=== PATIENT | male | born 1945 | race American Indian/Alaskan Native ===

== ENCOUNTER 2021-09-15 12:21 | Inpatient (IN) | payer SELFPAY ==
--- NOTE | 2021-09-15 13:02 | Emergency Department Report ---
Stated Complaint: PAIN IN CHEST AFTER EATING - HPI History of Present Illness: 76-year-old male with no significant past medical history has been eating but reports that he feels like food is getting stuck in his esophagus. And after eating he vomits his food back up. For about a month now. No other acute symptoms reported. Patient is able to drink and stay hydrated but with food just feels if they get stuck in his throat or just EXTR. - ROS Review of Systems: After eating patient reports food seems to be lodged in throat. No other acute symptoms reported denies chest pain, shortness of breath, dizziness, weakness. - Exam Vital Signs: Vital Signs 09/15/21 12:57 Temperature 98.1 F Pulse Rate 116 H Respiratory 20 Rate Blood Pressure 148/97 [Right] O2 Sat by Pulse 100 Oximetry Physical Exam: No acute distress A/O x4 Patient amatory with no assistance. Nonlabored breathing. Skin dry clean and intact. MSE screening note: Focused history and physical exam performed. Due to findings the following was ordered: MSE complete. Orders to be placed. Patient to be seen by another provider in the back. Triage complete. ED Disposition for MSE Condition: Stable
[2021-09-16] MEDS ORDERED: ONDANSETRON 4 MG/2 ML INJ IV ONE (01:35)
--- NOTE | 2021-09-16 01:43 | Emergency Department Report ---
HPI - General Chief Complaint: Nausea/Vomiting/Diarrhea Time Seen by Provider: 09/16/21 01:17 - HPI HPI: Room 22 The patient is a 76-year-old male present with chief complaint of nausea vomiting. The patient states for the past month he feels as though solid foods get stuck in his chest when he swallows. Patient also complains of diffuse abdominal pain when he is full. The patient explains that whenever he eats solid food feels like his sister and eventually vomits. Patient states he is able to consume liquids. Patient admits to watery diarrhea. Patient has not yet seen a physician about the above complaints. ED Past Medical Hx - Past Medical History Previous Medical History?: No - Surgical History Past Surgical History?: No - Family History Family history: no significant - Social History Smoking Status: Never Smoker Substance Use Type: None (Denies illicit drug use) ED Review of Systems ROS: Stated complaint: PAIN IN CHEST AFTER EATING Other details as noted in HPI Constitutional: denies: fever Eyes: denies: eye pain ENT: denies: throat pain Cardiovascular: denies: chest pain Endocrine: no symptoms reported Gastrointestinal: abdominal pain, nausea, vomiting, diarrhea Genitourinary: denies: dysuria Musculoskeletal: denies: back pain Neurological: denies: headache Physical Exam - Physical Exam Vital Signs: Vital Signs 09/15/21 09/16/21 09/16/21 12:57 01:19 01:31 Temperature 98.1 F Pulse Rate 116 H 98 H 98 H Respiratory 20 16 16 Rate Blood Pressure 143/99 Blood Pressure 148/97 [Right] O2 Sat by Pulse 100 98 100 Oximetry Physical Exam: GENERAL: The patient is well-developed well-nourished male lying on stretcher not appearing to be in acute distress. [] HEENT: Normocephalic. Atraumatic. Extraocular motions are intact. Patient has moist mucous membranes. NECK: Supple. Trachea midline CHEST/LUNGS: Clear to auscultation. There is no respiratory distress noted. HEART/CARDIOVASCULAR: Regular. There is no tachycardia. There is no gallop rub or murmur. ABDOMEN: Abdomen is soft, nontender. Patient has normal bowel sounds. There is no abdominal distention. SKIN: There is no rash. There is no edema. There is no diaphoresis. NEURO: The patient is awake, alert, and oriented. The patient is cooperative. The patient has no focal neurologic deficits. The patient has normal speech. GCS 15 MUSCULOSKELETAL:There is no evidence of acute injury. ED Course Vital Signs 09/15/21 09/16/21 09/16/21 12:57 01:19 01:31 Temperature 98.1 F Pulse Rate 116 H 98 H 98 H Respiratory 20 16 16 Rate Blood Pressure 143/99 Blood Pressure 148/97 [Right] O2 Sat by Pulse 100 98 100 Oximetry - Consultations Consultation #1: 09/16/21 03:26 GI paged 09/16/21 03:33 Case discussed with clinical laboratory scientist Dr. Rodriguez- agree with admission. Will consult ED Medical Decision Making - Lab Data Result diagrams: 09/16/21 01:58 09/16/21 01:58 Laboratory Tests 09/16/21 09/16/21 01:58 01:58 WBC 7.2 RBC 4.80 Hgb 13.0 Hct 37.7 MCV 78 L MCH 27 L MCHC 35 H RDW 15.9 H Plt Count 76 L Lymph % (Auto) 36.9 H [place] % (Auto) 9.4 H Eos % (Auto) 2.5 Baso % (Auto) 0.5 Lymph # (Auto) 2.7 [place] # (Auto) 0.7 Eos # (Auto) 0.2 Baso # (Auto) 0.0 Seg Neutrophils % 50.7 Seg Neutrophils # 3.6 Sodium 136 L Potassium 4.5 Chloride 102.9 Carbon Dioxide 20 L Anion Gap 18 BUN 13 Creatinine 0.8 Estimated GFR > 60 BUN/Creatinine Ratio 16 Glucose 127 H Calcium 8.9 Total Bilirubin 1.80 H AST 14 ALT 30 Alkaline Phosphatase 111 Total Protein 8.0 Albumin 4.0 Albumin/Globulin Ratio 1.0 Lipase 43 - Radiology Data Radiology results: report reviewed (CT abdomen pelvis), image reviewed (CT abdomen pelvis) [facility] [address] [place] [address] Cat Scan Report Signed Patient: FLACO ROGERS MR#: [id number] : 1945 Acct:[id number] Age/Sex: 76 / M ADM Date: 09/15/21 Loc: ED Attending Dr: Ordering Physician: IVORY MCNULTY MD Date of Service: 09/16/21 Procedure(s): CT abdomen pelvis wo con Accession Number(s): [id number] cc: IVORY MCNULTY MD CT ABDOMEN AND PELVIS WITHOUT CONTRAST INDICATION / CLINICAL INFORMATION: Intractable n/v, intolerance of solid food. TECHNIQUE: Axial CT images were obtained through the abdomen and pelvis without IV contrast. All CT scans at this location are performed using CT dose reduction for ALARA by means of automated exposure control. COMPARISON: None available. FINDINGS: LOWER CHEST: There is bibasilar volume loss. LIVER: No significant abnormality GALLBLADDER/BILIARY TREE: No significant abnormality PANCREAS: No significant abnormality SPLEEN: Mildly enlarged, measuring 13.8 cm. ADRENALS: No significant abnormality RIGHT KIDNEY / URETER: No acute findings. Renal cysts. LEFT KIDNEY / URETER: No acute findings. Tiny left renal cyst. URINARY BLADDER: No significant abnormality REPRODUCTIVE ORGANS: Prostate is enlarged. STOMACH / BOWEL: Small bowel and colon demonstrate no evidence of mechanical obstruction or inflammation. The appendix is normal. LYMPH NODES: No significant adenopathy. VASCULATURE: No significant abnormality. OTHER: No free air, free fluid, or focal fluid collection is identified. Small left inguinal hernia contains noninflamed fat. SKELETAL SYSTEM: No acute osseous findings. IMPRESSION: 1. No acute findings of the abdomen or pelvis. No evidence of localized bowel inflammation or obstruction. 2. Nonspecific mild splenomegaly. 3. Other incidental findings as above. Signer Name: Killian Kessler MD Signed: 09/16/2021 3:03 AM Workstation Name: [id number] Transcribed By: JS Dictated By: KILLIAN KESSLER MD Electronically Authenticated By: KILLIAN KESSLER MD Signed Date/Time: 09/16/21 0303 DD/ 0259 TD/TT: - Differential Diagnosis Achalasia, esophageal web, esophageal ring, small bowel obstruction Critical care attestation.: If time is entered above; I have spent that time in minutes in the direct care of this critically ill patient, excluding procedure time. ED Disposition Clinical Impression: Dysphagia Disposition: ADMITTED INPATIENT Is pt being admited?: Yes Does the pt Need Aspirin: No Condition: Fair Referrals: PRIMARY CARE, [Primary Care Provider] - 3-5 Days Time of Disposition: 03:34 (Care transferred to hospitalist (Dr. Keith))
[2021-09-16 02:19] LABS: Basophils % (Auto) 0.5 % (0.0-1.8); Eosinophils # (Auto) 0.2 K/mm3 (0.0-0.4); Eosinophils % (Auto) 2.5 % (0.0-4.3); Hematocrit 37.7 % (35.5-45.6); Lymphocytes # (Auto) 2.7 K/mm3 (1.2-5.4); Lymphocytes % (Auto) 36.9 % (13.4-35.0); Mean Corpuscular HGB Conc 35 % (32-34); Mean Corpuscular Volume 78 fl (84-94); Monocytes # (Auto) 0.7 K/mm3 (0.0-0.8); Monocytes % (Auto) 9.4 % (0.0-7.3); Platelet Count 76 K/mm3 (140-440); Red Cell Distribution Width 15.9 % (13.2-15.2)
[2021-09-16 02:51] LABS: Alanine Aminotransferase 30 units/L (7-56); BUN/Creatinine Ratio 16; Blood Urea Nitrogen 13 mg/dL (9-20); Calcium 8.9 mg/dL (8.4-10.2); Hemolysis Index 10
--- NOTE | 2021-09-16 03:07 | Cat Scan Report ---
CT ABDOMEN AND PELVIS WITHOUT CONTRAST INDICATION / CLINICAL INFORMATION: Intractable n/v, intolerance of solid food. TECHNIQUE: Axial CT images were obtained through the abdomen and pelvis without IV contrast. All CT scans at this location are performed using CT dose reduction for ALARA by means of automated exposure control. COMPARISON: None available. FINDINGS: LOWER CHEST: There is bibasilar volume loss. LIVER: No significant abnormality GALLBLADDER/BILIARY TREE: No significant abnormality PANCREAS: No significant abnormality SPLEEN: Mildly enlarged, measuring 13.8 cm. ADRENALS: No significant abnormality RIGHT KIDNEY / URETER: No acute findings. Renal cysts. LEFT KIDNEY / URETER: No acute findings. Tiny left renal cyst. URINARY BLADDER: No significant abnormality REPRODUCTIVE ORGANS: Prostate is enlarged. STOMACH / BOWEL: Small bowel and colon demonstrate no evidence of mechanical obstruction or inflammat ion. The appendix is normal. LYMPH NODES: No significant adenopathy. VASCULATURE: No significant abnormality. OTHER: No free air, free fluid, or focal fluid collection is identified. Small left inguinal hernia c ontains noninflamed fat. SKELETAL SYSTEM: No acute osseous findings. IMPRESSION: 1. No acute findings of the abdomen or pelvis. No evidence of localized bowel inflammation or obstruc tion. 2. Nonspecific mild splenomegaly. 3. Other incidental findings as above. Signer Name: Quang Kessler MD Signed: 09/16/2021 3:03 AM Workstation Name: [id number]
--- NOTE | 2021-09-16 05:14 | History and Physical Report ---
History of Present Illness Date of examination: 09/16/21 Date of admission: 09/16/21 Chief complaint: Nausea vomiting diarrhea History of present illness: 76-year-old male with no significant past medical history was brought to the emergency room because of nausea vomiting. The patient states for the past month he feels as though solid foods get stuck in his chest when he swallows. Patient also complains of diffuse abdominal pain when he is full. The patient e xplains that whenever he eats solid food feels full and eventually vomits. Patient states he is able to consume liquids. Patient admits to watery diarrhea. Patient has not yet seen a physician about the above complaints. In the emergency room CT scan of the abdomen and pelvis without contrast shows no acute finding of the abdomen or pelvis. No evidence of localized bowel inflammation or obstruction. Subsequently Case was discussed with on-call GI fellow going to admit the patient and GI will see the patient in the morning Past History Past Surgical History: No surgical history Social history: no significant social history Family history: no significant family history Medications and Allergies Allergies Allergy/AdvReac Type Severity Reaction Status Date / Time No Known Allergies Allergy Unverified 09/15/21 13:02 Review of Systems All systems: negative Gastrointestinal: abdominal pain, nausea, vomiting, diarrhea Exam - Constitutional Vitals: Temp Pulse Resp BP Pulse Ox 98.1 F 96 H 12 145/95 98 09/15/21 12:57 09/16/21 04:31 09/16/21 04:31 09/16/21 04:31 09/16/21 04:31 General appearance: Present: no acute distress, well-nourished - EENT Eyes: Present: PERRL ENT: hearing intact, clear oral mucosa - Neck Neck: Present: supple, normal ROM - Respiratory Respiratory effort: normal Respiratory: bilateral: CTA - Cardiovascular Heart Sounds: Present: S1 & S2. Absent: rub, click - Extremities Extremities: pulses symmetrical, No edema Peripheral Pulses: within normal limits - Abdominal General gastrointestinal: Present: soft, non-tender, non-distended, normal bowel sounds Male genitourinary: Present: normal - Integumentary Integumentary: Present: clear, warm, dry - Musculoskeletal Musculoskeletal: gait normal, strength equal bilaterally - Psychiatric Psychiatric: appropriate mood/affect, intact judgment & insight - Neurologic Neurologic: CNII-XII intact, moves all extremities Results - Labs CBC & Chem 7: 09/16/21 01:58 09/16/21 01:58 Labs: Laboratory Last Values WBC 7.2 K/mm3 (4.5-11.0) 09/16/21 01:58 RBC 4.80 M/mm3 (3.65-5.03) 09/16/21 01:58 Hgb 13.0 gm/dl (11.8-15.2) 09/16/21 01:58 Hct 37.7 % (35.5-45.6) 09/16/21 01:58 MCV 78 fl (84-94) L 09/16/21 01:58 MCH 27 pg (28-32) L 09/16/21 01:58 MCHC 35 % (32-34) H 09/16/21 01:58 RDW 15.9 % (13.2-15.2) H 09/16/21 01:58 Plt Count 76 K/mm3 (140-440) L 09/16/21 01:58 Lymph % (Auto) 36.9 % (13.4-35.0) H 09/16/21 01:58 [place] % (Auto) 9.4 % (0.0-7.3) H 09/16/21 01:58 Eos % (Auto) 2.5 % (0.0-4.3) 09/16/21 01:58 Baso % (Auto) 0.5 % (0.0-1.8) 09/16/21 01:58 Lymph # (Auto) 2.7 K/mm3 (1.2-5.4) 09/16/21 01:58 [place] # (Auto) 0.7 K/mm3 (0.0-0.8) 09/16/21 01:58 Eos # (Auto) 0.2 K/mm3 (0.0-0.4) 09/16/21 01:58 Baso # (Auto) 0.0 K/mm3 (0.0-0.1) 09/16/21 01:58 Seg Neutrophils % 50.7 % (40.0-70.0) 09/16/21 01:58 Seg Neutrophils # 3.6 K/mm3 (1.8-7.7) 09/16/21 01:58 Sodium 136 mmol/L (137-145) L 09/16/21 01:58 Potassium 4.5 mmol/L (3.6-5.0) 09/16/21 01:58 Chloride 102.9 mmol/L (98-107) 09/16/21 01:58 Carbon Dioxide 20 mmol/L (22-30) L 09/16/21 01:58 Anion Gap 18 mmol/L 09/16/21 01:58 BUN 13 mg/dL (9-20) 09/16/21 01:58 Creatinine 0.8 mg/dL (0.8-1.3) 09/16/21 01:58 Estimated GFR > 60 ml/min 09/16/21 01:58 BUN/Creatinine Ratio 16 % 09/16/21 01:58 Glucose 127 mg/dL (75-100) H 09/16/21 01:58 Calcium 8.9 mg/dL (8.4-10.2) 09/16/21 01:58 Total Bilirubin 1.80 mg/dL (0.1-1.2) H 09/16/21 01:58 AST 14 units/L (5-40) 09/16/21 01:58 ALT 30 units/L (7-56) 09/16/21 01:58 Alkaline Phosphatase 111 units/L (35-129) 09/16/21 01:58 Total Protein 8.0 g/dL (6.3-8.2) 09/16/21 01:58 Albumin 4.0 g/dL (3.9-5) 09/16/21 01:58 Albumin/Globulin Ratio 1.0 % 09/16/21 01:58 Lipase 43 units/L (13-60) 09/16/21 01:58 - Imaging and Cardiology CT scan - abdomen: report reviewed Assessment and Plan VTE prophylaxis?: Chemical Plan of care discussed with patient/family: Yes - Patient Problems (1) Dysphagia Current Visit: Yes Status: Acute Plan to address problem: Admit the patient to the medical floor telemetry. NPO. D5 half-normal saline at the rate of 100 cc/h. Pepcid 20 mg IV every 12 hours. Zofran 4 mg IV every 6 hours as needed. Will consult GI for further evaluation (2) Nausea & vomiting Current Visit: Yes Status: Acute Plan to address problem: NPO. D5 half-normal saline at the rate of 100 cc/h. Pepcid 20 mg IV every 12 hours. Zofran 4 mg IV every 6 hours as needed. (3) Abdominal pain Current Visit: Yes Status: Acute Plan to address problem: NPO. D5 half-normal saline at the rate of 100 cc/h. Pepcid 20 mg IV every 12 hours. Zofran 4 mg IV every 6 hours as needed. Morphine 2 mg IV every 4 hours as needed (4) DVT prophylaxis Current Visit: Yes Status: Acute Plan to address problem: Heparin 5000 units subcu every 12 hours for DVT prophylaxis. Pepcid 20 mg IV every 12 hours for GI prophylaxis. Patient is a full code
[2021-09-16] MEDS ORDERED: MORPHINE 2 MG/1 ML INJ IV PRN (05:30)
[2021-09-16] MEDS ORDERED: ALBUTEROL 2.5 MG/3 ML NEBU IH PRN (05:30)
[2021-09-16] MEDS ORDERED: D5W/0.45% NACL 1,000 ML IV SCH (06:00)
[2021-09-16] MEDS ORDERED: ACETAMINOPHEN 325 MG TAB PO PRN (06:00)
[2021-09-16] MEDS ORDERED: MORPHINE 4 MG/1 ML INJ IV PRN (06:00)
[2021-09-16] MEDS ORDERED: ONDANSETRON 4 MG/2 ML INJ IV PRN (06:00)
[2021-09-16] MEDS ORDERED: IPRATROPIUM/ALBUTEROL SULFATE 3 ML AMPUL.NEB IH SCH (08:00)
[2021-09-16] MEDS ORDERED: IPRATROPIUM/ALBUTEROL SULFATE 3 ML AMPUL.NEB IH PRN (08:33)
[2021-09-16] MEDS ORDERED: HEPARIN 5,000 UNIT/1 ML VIAL SUB-Q SCH (10:00)
[2021-09-16] MEDS: FAMOTIDINE 20 MG/2 ML INJ IV SCH ×2 (11:26→22:01)
--- NOTE | 2021-09-16 13:32 | Event Note ---
Date: 09/16/21 Patient was evaluated this morning, he was found to be hemodynamically stable. #Dysphagia #Nausea and vomiting Speech therapy consulted for bedside evaluation; pending recs. Gastroenterology consulted; pending recs. Pending upper endoscopy tomorrow morning with GI. Patient currently NPO. Continue D5 half-normal saline at 100 cc/hour. Continue as needed analgesics. Continue IV Pepcid 20 mg twice daily. #Hyperbilirubinemia - Total bilirubin 1.8 - Continue to monitor with repeat CMP. #Thrombocytopenia - platelets 76. Transfuse if platelets <50K and pending procedure, <20K with cutaneous bleeding, or <15K. - continue to monitor. #Coordination of CARE time: 30 minutes. Total visit time equals 30 or more minutes with greater than 50% spent [id number] on coordination of care and counseling. #Advanced care planning -Disease education conducted, care plan discussed, diagnoses discussed, prognosis discussed, and patient acknowledges understanding with care plan -Time: +30 min
--- NOTE | 2021-09-16 15:11 | Event Note ---
Date: 09/16/21 Full GI consult dictated - pt w/ 3 months dysphagia - EGD in am if schedule permits
[2021-09-16] MEDS: HEPARIN 5,000 UNIT/1 ML VIAL SUB-Q SCH ×2 (15:25→22:01)
--- NOTE | 2021-09-17 03:09 | Consultation ---
DATE OF CONSULTATION: 09/16/2021 REFERRING PHYSICIAN: Dr. Delores Boone. INDICATIONS: 1. Nausea. 2. Dysphagia. HISTORY OF PRESENT ILLNESS: A 76-year-old black male presents with nausea and vomiting. The patient reports for the last 3 months, he has had progressive dysphagia where food is getting stuck along the mid esophagus. This led to decreased appetite and some weight loss. The patient denies a history of reflux prior. The patient did report some nausea and vomiting. The patient reports some loose stools. The patient subsequently came to the Emergency Room where he was evaluated, admitted and GI consulted. The patient denies any other specific complaints. PAST MEDICAL HISTORY: Negative. PAST SURGICAL HISTORY: Negative. MEDICATIONS: Reviewed and updated in chart. ALLERGIES: No known drug allergies. SOCIAL HISTORY: Denies alcohol, tobacco or drug abuse. FAMILY HISTORY: Negative for colon cancer, IBD, or liver disease.. REVIEW OF SYSTEMS: GENERAL: Reports some weakness. HEENT: Denies visual complaints or tinnitus. PULMONARY: No shortness of breath, chest pain. GASTROINTESTINAL: Reports problems swallowing and dysphagia. All points of 13-point review of system otherwise negative. PHYSICAL EXAMINATION: VITAL SIGNS: Temperature of 98.1, pulse 86, respirations 18, blood pressure 138/94. GENERAL: Fairly thin black male in no acute distress. HEENT: Pupils round and reactive. PULMONARY: Clear to auscultation bilaterally. CARDIOVASCULAR: Regular rate and rhythm. Normal S1, S2. ABDOMEN: Positive bowel sounds, soft. SKIN: No obvious rashes. LABORATORY DATA: Pertinent for white count of 7.2, hemoglobin and hematocrit of 13 and 37.7, platelet count of 76. Chem-7 within normal limits. LFTs within normal limits. CT scan abdomen and pelvis without contrast on 09/15/2021 showed no significant intraabdominal process except for mild splenomegaly. ASSESSMENT: A 76-year-old black male presents with 3 months of dysphagia to solids progressively worse with decreased appetite and nausea, vomiting and unable to get food down. The patient's CT scan was otherwise benign. He does report some weight loss. Concern for upper esophageal pathology. PLAN: 1. Will review CT scan. 2. N.p.o. after midnight. 3. PPI daily. 4. Planned EGD with possible dilatation in a.m. TID: [id number] RECEIPT: [id number] BRIAN/MALLORIE
[2021-09-17 05:38] LABS: Basophils % (Auto) 0.4 % (0.0-1.8); Eosinophils # (Auto) 0.3 K/mm3 (0.0-0.4); Eosinophils % (Auto) 5.2 % (0.0-4.3); Hematocrit 34.8 % (35.5-45.6); Hemoglobin 12.1 gm/dl (11.8-15.2); Lymphocytes # (Auto) 2.3 K/mm3 (1.2-5.4); Lymphocytes % (Auto) 43.1 % (13.4-35.0); Mean Corpuscular HGB Conc 35 % (32-34); Mean Corpuscular Volume 79 fl (84-94); Monocytes # (Auto) 0.5 K/mm3 (0.0-0.8); Monocytes % (Auto) 10.1 % (0.0-7.3); Red Blood Count 4.42 M/mm3 (3.65-5.03); Red Cell Distribution Width 15.9 % (13.2-15.2)
[2021-09-17] MEDS: HEPARIN 5,000 UNIT/1 ML VIAL SUB-Q SCH (05:38)
[2021-09-17 05:46] LABS: Platelet Count 66 K/mm3 (140-440)
[2021-09-17 05:59] LABS: Alanine Aminotransferase 30 units/L (7-56); Albumin 3.8 g/dL (3.9-5); BUN/Creatinine Ratio 11; Blood Urea Nitrogen 10 mg/dL (9-20); Calcium 8.6 mg/dL (8.4-10.2); Hemolysis Index 0
[2021-09-17] MEDS: FAMOTIDINE 20 MG/2 ML INJ IV SCH ×2 (10:06→21:57)
--- NOTE | 2021-09-17 12:07 | Progress Note ---
Assessment and Plan Assessment and plan: Patient was evaluated this morning, he was found to be hemodynamically stable. #Dysphagia #Nausea and vomiting Speech therapy consulted for bedside evaluation; pending recs. Gastroenterology consulted; pending recs. Pending upper endoscopy today with GI. Patient currently NPO. Continue D5 half-normal saline at 100 cc/hour. Continue as needed antiemetics. Continue IV Pepcid 20 mg twice daily. #Hyperbilirubinemia - Total bilirubin 1.8 - Continue to monitor with repeat CMP. #Thrombocytopeniaworsening - platelets 76-->66 Transfuse if platelets <50K and pending procedure, <20K with cutaneous bleeding, or <15K. - continue to monitor. #Advanced care planning -Disease education conducted, care plan discussed, diagnoses discussed, prognosis discussed, and patient acknowledges understanding with care plan -Time: +30 min Disposition Plan: Continue medical management Total Time Spent with Patient (Minutes): 45 minutes History Interval history: No acute events over night. The patient denies fevers, chills, nausea, vomiting, abdominal pain, chest pain/pressure, shortness of breath, urinary symptoms, weakness, or confusion. Hospitalist Physical - Constitutional Vitals: Temp Pulse Resp BP Pulse Ox 98.1 F 90 20 136/83 97 09/16/21 16:49 09/16/21 21:12 09/16/21 21:12 09/16/21 21:12 09/17/21 09:20 General appearance: Present: no acute distress, well-nourished - EENT Eyes: Present: PERRL, EOM intact ENT: hearing intact, clear oral mucosa, dentition normal - Neck Neck: Present: supple, normal ROM - Respiratory Respiratory effort: normal Respiratory: bilateral: CTA - Cardiovascular Rhythm: regular Heart Sounds: Present: S1 & S2 - Extremities Extremities: no ischemia, pulses intact, pulses symmetrical, No edema, normal temperature, normal color, Full ROM Peripheral Pulses: within normal limits - Abdominal General gastrointestinal: soft, non-tender, non-distended, normal bowel sounds - Integumentary Integumentary: Present: clear, warm, dry - Psychiatric Psychiatric: appropriate mood/affect, intact judgment & insight, memory intact, cooperative - Neurologic Neurologic: CNII-XII intact, moves all extremities, gait normal - Allied Health Allied health notes reviewed: nursing Results - Labs CBC & Chem 7: 09/17/21 04:33 09/17/21 04:33 Labs: Laboratory Last Values WBC 5.3 K/mm3 (4.5-11.0) 09/17/21 04:33 RBC 4.42 M/mm3 (3.65-5.03) 09/17/21 04:33 Hgb 12.1 gm/dl (11.8-15.2) 09/17/21 04:33 Hct 34.8 % (35.5-45.6) L 09/17/21 04:33 MCV 79 fl (84-94) L 09/17/21 04:33 MCH 27 pg (28-32) L 09/17/21 04:33 MCHC 35 % (32-34) H 09/17/21 04:33 RDW 15.9 % (13.2-15.2) H 09/17/21 04:33 Plt Count 66 K/mm3 (140-440) L 09/17/21 04:33 Lymph % (Auto) 43.1 % (13.4-35.0) H 09/17/21 04:33 [place] % (Auto) 10.1 % (0.0-7.3) H 09/17/21 04:33 Eos % (Auto) 5.2 % (0.0-4.3) H 09/17/21 04:33 Baso % (Auto) 0.4 % (0.0-1.8) 09/17/21 04:33 Lymph # (Auto) 2.3 K/mm3 (1.2-5.4) 09/17/21 04:33 [place] # (Auto) 0.5 K/mm3 (0.0-0.8) 09/17/21 04:33 Eos # (Auto) 0.3 K/mm3 (0.0-0.4) 09/17/21 04:33 Baso # (Auto) 0.0 K/mm3 (0.0-0.1) 09/17/21 04:33 Seg Neutrophils % 41.2 % (40.0-70.0) 09/17/21 04:33 Seg Neutrophils # 2.2 K/mm3 (1.8-7.7) 09/17/21 04:33 Sodium 137 mmol/L (137-145) 09/17/21 04:33 Potassium 3.9 mmol/L (3.6-5.0) 09/17/21 04:33 Chloride 105.2 mmol/L (98-107) 09/17/21 04:33 Carbon Dioxide 25 mmol/L (22-30) 09/17/21 04:33 Anion Gap 11 mmol/L 09/17/21 04:33 BUN 10 mg/dL (9-20) 09/17/21 04:33 Creatinine 0.9 mg/dL (0.8-1.3) 09/17/21 04:33 Estimated GFR > 60 ml/min 09/17/21 04:33 BUN/Creatinine Ratio 11 % 09/17/21 04:33 Glucose 118 mg/dL (75-100) H 09/17/21 04:33 POC Glucose 111 mg/dL (70-105) H 09/16/21 08:25 Calcium 8.6 mg/dL (8.4-10.2) 09/17/21 04:33 Total Bilirubin 1.90 mg/dL (0.1-1.2) H 09/17/21 04:33 AST 13 units/L (5-40) 09/17/21 04:33 ALT 30 units/L (7-56) 09/17/21 04:33 Alkaline Phosphatase 97 units/L (35-129) 09/17/21 04:33 Total Protein 7.5 g/dL (6.3-8.2) 09/17/21 04:33 Albumin 3.8 g/dL (3.9-5) L 09/17/21 04:33 Albumin/Globulin Ratio 1.0 % 09/17/21 04:33 Lipase 43 units/L (13-60) 09/16/21 01:58 [place]/IV: Voiding Method Toilet Active Medications - Current Medications Current Medications: Generic Name Dose Route Start Last Admin Trade Name Freq PRN Reason Stop Dose Admin Acetaminophen 650 mg 09/16/21 06:00 Acetaminophen 325 Mg Tab PO Q4H PRN Pain MILD(1-3)/Fever >100.5/VARELA Albuterol 2.5 mg 09/16/21 05:30 Albuterol 2.5 Mg/3 Ml Nebu IH Q3HRT PRN Shortness Of Breath Albuterol/Ipratropium 1 ampul 09/16/21 08:33 Ipratropium/Albuterol Sulfate 3 Ml Ampul.Neb IH Q6HRT PRN Shortness of breath Famotidine 20 mg 09/16/21 10:00 09/16/21 22:01 Famotidine 20 Mg/2 Ml Inj IV 20 mg BID MYA Administration Heparin Sodium (Porcine) 5,000 unit 09/16/21 14:00 09/17/21 05:38 Heparin 5,000 Unit/1 Ml Vial SUB-Q Not Given Q8HR MYA Dextrose/Sodium Chloride 1,000 mls @ 100 mls/hr 09/16/21 06:00 09/17/21 05:33 D5/0.45ns IV 100 mls/hr DIRECT MYA Administration Morphine Sulfate 2 mg 09/16/21 05:30 Morphine 2 Mg/1 Ml Inj IV Q4H PRN Pain, Moderate (4-6) Morphine Sulfate 4 mg 09/16/21 06:00 Morphine 4 Mg/1 Ml Inj IV Q4H PRN Pain , Severe (7-10) Ondansetron HCl 4 mg 09/16/21 06:00 Ondansetron 4 Mg/2 Ml Inj IV Q8H PRN Nausea And Vomiting Sodium Chloride 10 ml 09/16/21 10:00 09/16/21 22:01 Sodium Chloride 0.9% 10 Ml Flush Syringe IV 10 ml BID MYA Administration Sodium Chloride 10 ml 09/16/21 05:30 Sodium Chloride 0.9% 10 Ml Flush Syringe IV PRN PRN LINE FLUSH
[2021-09-17] MEDS ORDERED: WATER FOR IRRIG STERILE 250 ML BOTTLE IR ONE (13:20)
[2021-09-17] MEDS ORDERED: WATER FOR IRRIG STERILE 1,000 ML BOTTLE ONE (13:20)
[2021-09-17] MEDS ORDERED: SODIUM CHLORIDE 0.9% 1000 ML 1,000 ML ONE (13:47)
--- NOTE | 2021-09-17 19:45 | Gastroenterology Progress Note ---
Assessment and Plan 1. GI: pt w/ dysphagia - egd in am - continue current meds and diet Subjective Date of service: 09/17/21 Interval history: - no new GI issues overnight Objective - Constitutional Vitals: Temp Pulse Resp BP Pulse Ox 99.0 F 94 H 18 121/84 98 09/17/21 13:21 09/17/21 13:21 09/17/21 13:21 09/17/21 13:21 09/17/21 13:50 General appearance: no acute distress - EENT Eyes: PERRL - Cardiovascular Rhythm: regular Heart Sounds: Present: S1 & S2 - Gastrointestinal General gastrointestinal: Present: soft, non-tender, non-distended - Labs CBC & Chem 7: 09/17/21 04:33 09/17/21 04:33 Labs: Laboratory Results - last 24 hr 09/17/21 09/17/21 04:33 04:33 WBC 5.3 RBC 4.42 Hgb 12.1 Hct 34.8 L MCV 79 L MCH 27 L MCHC 35 H RDW 15.9 H Plt Count 66 L Lymph % (Auto) 43.1 H [place] % (Auto) 10.1 H Eos % (Auto) 5.2 H Baso % (Auto) 0.4 Lymph # (Auto) 2.3 [place] # (Auto) 0.5 Eos # (Auto) 0.3 Baso # (Auto) 0.0 Seg Neutrophils % 41.2 Seg Neutrophils # 2.2 Sodium 137 Potassium 3.9 Chloride 105.2 Carbon Dioxide 25 Anion Gap 11 BUN 10 Creatinine 0.9 Estimated GFR > 60 BUN/Creatinine Ratio 11 Glucose 118 H Calcium 8.6 Total Bilirubin 1.90 H AST 13 ALT 30 Alkaline Phosphatase 97 Total Protein 7.5 Albumin 3.8 L Albumin/Globulin Ratio 1.0
[2021-09-17] MEDS ORDERED: ENOXAPARIN 30 MG/0.3 ML INJ SUB-Q SCH (20:00)
[2021-09-18 06:43] LABS: Basophils % (Auto) 0.5 % (0.0-1.8); Eosinophils # (Auto) 0.3 K/mm3 (0.0-0.4); Eosinophils % (Auto) 4.7 % (0.0-4.3); Hematocrit 34.5 % (35.5-45.6); Hemoglobin 11.8 gm/dl (11.8-15.2); Lymphocytes # (Auto) 2.2 K/mm3 (1.2-5.4); Lymphocytes % (Auto) 38.4 % (13.4-35.0); Mean Corpuscular HGB Conc 34 % (32-34); Mean Corpuscular Volume 79 fl (84-94); Monocytes # (Auto) 0.6 K/mm3 (0.0-0.8); Monocytes % (Auto) 9.8 % (0.0-7.3); Red Blood Count 4.35 M/mm3 (3.65-5.03); Red Cell Distribution Width 15.6 % (13.2-15.2)
[2021-09-18 06:52] LABS: Platelet Count 63 K/mm3 (140-440)
[2021-09-18 07:07] LABS: BUN/Creatinine Ratio 10; Blood Urea Nitrogen 8 mg/dL (9-20); Calcium 8.1 mg/dL (8.4-10.2); Hemolysis Index 10
[2021-09-18] MEDS ORDERED: propofoL 200 MG/20 ML VIAL IV ONE (08:24)
[2021-09-18] MEDS ORDERED: SODIUM CHLORIDE 0.9% 1000 ML 1,000 ML ONE (08:27)
[2021-09-18] MEDS ORDERED: EPINEPHrine 1 MG/10 ML SYRINGE ONE (08:27)
--- NOTE | 2021-09-18 09:08 | Post Operative Note ---
Pre-op diagnosis: dysphagia Post-op diagnosis: same Findings: EGD: 4 cm hiatal hernia - Grade I esophagitis g-e junction (bx's) - ring g-e junction noted, Balloon 20mm dilation performed - mild gastritis (bx's) - otherwise normal Procedure: egd w/ bx's and balloon dilation Anesthesia: MAC Surgeon: DEBORA DOUGLAS Estimated blood loss: none Pathology: list Specimen disposition: to lab Condition: stable Disposition: floor
[2021-09-18 09:38] VITALS: BP 135/75
[2021-09-18] MEDS ORDERED: PANTOPRAZOLE 40 MG TAB PO SCH (10:00)
--- NOTE | 2021-09-18 10:19 | Operative Report ---
DATE OF SURGERY: 09/18/2021 DATE OF PROCEDURE: 09/18/2021 PROCEDURES: EGD with cold biopsies and balloon dilatation. INDICATIONS: 1. Dysphagia. 2. GERD. MEDICATIONS: Propofol per MANAGER OF [employer]. COMPLICATIONS: None. DESCRIPTION OF PROCEDURE: The patient was brought to the procedure suite. The patient had the procedure discussed with him at length. All risks, complications, and benefits discussed with the patient's brother who gave verbal permission for the procedure to be performed. The patient was placed in left lateral decubitus position. Mouth block was placed in patient's oral cavity. After adequate sedation with medication as above, endoscope placed in the mouth and brought to level of second portion of duodenum. Retroflexion view performed. The patient's vital signs remained stable throughout the procedure. FINDINGS: GE junction is at 36 cm from the gums. There is a nonobstructing ring noted at GE junction. There was grade 1 esophagitis noted at the GE junction. Biopsies were taken and sent to pathology. The esophagus otherwise appeared to be normal. There is mild gastritis noted. Biopsies were taken and sent to pathology. Remaining stomach otherwise appeared to be normal. The duodenum appeared to be normal. Retroflexion view performed in the stomach showed no other pathology other than noted above. After this inspection using standard technique, a TTS balloon was then used to dilate the ring with 20 mm balloon. Post-procedure appearance was satisfactory. The patient tolerated the procedure well. No complications during this procedure. IMPRESSION: 1. Nonobstructing ring noted at GE junction, status post balloon dilatation as noted above. 2. Hiatal hernia. 3. Grade 1 esophagitis with biopsies performed. 4. Mild gastritis, biopsies performed. 5. Otherwise, normal esophagogastroduodenoscopy. RECOMMENDATIONS: 1. Follow up biopsy results. 2. If H. pylori positive, we will treat. 3. PPI daily. 4. Soft diet, advance as tolerated. 5. If tolerating p.o., okay to discharge from GI standpoint. TID: [id number] RECEIPT: [id number] BRIAN/MICHELE/KAM cc:
--- NOTE | 2021-09-18 11:15 | Discharge Summary ---
Providers - Providers Date of Admission: 09/16/21 05:07 Date of discharge: 09/18/21 Attending physician: RODGER MENDEZ MD 09/16/21 03:31 Consult to Physician [CONS] Urgent Comment: Consulting Provider: KELLY CARRILLO Physician Instructions: Reason For Exam: Dysphagia 09/16/21 13:18 Speech Therapy Evaluation and Treat [CONS] Routine Reason For Exam: Dysphagia workup Primary care physician: PAIL BAILER Hospitalization Reason for admission: Dysphagia Condition: Fair Pertinent studies: Reviewed. Procedures: EGD with balloon dilation of GE junction Hospital course: The patient is a 76-year-old male with no significant past medical history who presented to the ED with complaints of nausea, vomiting, and progressive dysphagia to solids getting stuck in his chest when he swallows. Patient also complained of diffuse abdominal pain when he is full/associated. Patient described that whenever he eats solid foods he feels full and eventually this leads to vomiting. He did endorse being able to consume liquids without any complications. Patient denies following up with a physician and/or meat and seafood clerk for the the symptoms. In the ED, the patient was hemodynamically stable with labs remarkable for platelets 76, bicarb 20, and glucose 127. Patient was admitted for further management, gastroenterology was consulted for management of dysphagia. Gastroenterology performed an EGD revealing 4 cm hiatal hernia with grade 1 esophagitis at GE junction; ring GE junction noted; balloon dilation performed; stomach revealing mild gastritis; biopsies taken at GE junction and stomach. Patient will be started back on p.o. Protonix 40 mg daily, the patient will follow-up with gastroenterology regarding his biopsies in the outpatient setting. Patient is medically clear for discharge. Disposition: 01 HOME / SELF CARE / HOMELESS Final Discharge Diagnosis (Prints w/discharge instructions): Dysphagia, nausea and vomiting, hyperbilirubinemia, thrombocytopenia Time spent for discharge: 45 min Core Measure Documentation - Palliative Care Palliative Care/ Comfort Measures: Not Applicable - Core Measures Any of the following diagnoses?: none Exam - Constitutional Vitals: Temp Pulse Resp BP Pulse Ox 97.0 F L 88 15 135/75 98 09/18/21 09:30 09/18/21 09:30 09/18/21 09:30 09/18/21 09:30 09/18/21 09:52 General appearance: Present: no acute distress, well-nourished - EENT Eyes: Present: PERRL, EOM intact ENT: hearing intact, clear oral mucosa, dentition normal - Neck Neck: Present: supple, normal ROM - Respiratory Respiratory effort: normal Respiratory: bilateral: CTA - Cardiovascular Rhythm: regular Heart Sounds: Present: S1 & S2 - Extremities Extremities: no ischemia, pulses intact, pulses symmetrical, No edema, normal temperature, normal color, Full ROM Peripheral Pulses: within normal limits - Abdominal General gastrointestinal: Present: soft, non-tender, non-distended, normal bowel sounds Male genitourinary: Present: deferred - Rectal Rectal Exam: deferred - Integumentary Integumentary: Present: clear, warm, dry - Musculoskeletal Musculoskeletal: strength equal bilaterally - Psychiatric Psychiatric: appropriate mood/affect, intact judgment & insight, memory intact, cooperative - Neurologic Neurologic: CNII-XII intact, moves all extremities - Allied Health Allied health notes reviewed: nursing Plan Activity: no restrictions Diet: regular Additional Instructions: The patient is a 76-year-old male with no significant past medical history who presented to the ED with complaints of nausea, vomiting, and progressive dysphagia to solids getting stuck in his chest when he swallows. Patient also complained of diffuse abdominal pain when he is full/associated. Patient described that whenever he eats solid foods he feels full and eventually this leads to vomiting. He did endorse being able to consume liquids without any complications. Patient denies following up with a physician and/or meat and seafood clerk for the the symptoms. In the ED, the patient was hemodynamically stable with labs remarkable for platelets 76, bicarb 20, and glucose 127. Patient was admitted for further management, gastroenterology was consulted for management of dysphagia. Gastroenterology performed an EGD revealing 4 cm hiatal hernia with grade 1 esophagitis at GE junction; ring GE junction noted; balloon dilation performed; stomach revealing mild gastritis; biopsies taken at GE junction and stomach. Patient will be started back on p.o. Protonix 40 mg daily, the patient will follow-up with gastroenterology regarding his biopsies in the outpatient setting. Patient is medically clear for discharge. Care Plan Goals: Patient is medically clear for discharge. Assessment: The patient is a 76-year-old male with no significant past medical history who presented to the ED with complaints of nausea, vomiting, and progressive dysphagia to solids getting stuck in his chest when he swallows. Patient also complained of diffuse abdominal pain when he is full/associated. Patient desc ribed that whenever he eats solid foods he feels full and eventually this leads to vomiting. He did endorse being able to consume liquids without any complications. Patient denies following up with a physician and/or meat and seafood clerk for the the symptoms. In the ED, the patient was hemodynamically stable with labs remarkable for platelets 76, bicarb 20, and glucose 127. Patient was admitted for further management, gastroenterology was consulted for management of dysphagia. Gastroenterology performed an EGD revealing 4 cm hiatal hernia with grade 1 esophagitis at GE junction; ring GE junction noted; balloon dilation performed; stomach revealing mild gastritis; biopsies taken at GE junction and stomach. Patient will be started back on p.o. Protonix 40 mg daily, the patient will follow-up with gastroenterology regarding his biopsies in the outpatient setting. Patient is medically clear for discharge. Follow up with: KANA REGAN MD [Staff Physician] - 14 Days Prescriptions: Pantoprazole [Protonix TAB] 40 mg PO QDAC #30 tablet
--- NOTE | 2021-09-18 19:00 | Post Anesthesia Evaluation ---
- Post Anesthesia Evaluation Patient Participated: Yes Airway Patent: Yes Stable Respiratory Function: Yes Nausea/Vomiting: No Temp > 96.8F: Yes Pain Manageable: Yes Adequeate Hydration: Yes Anesthesia Complications: No Block Receding Appropriately: Not Applicable Patient on Ventilator: No
== END 2021-09-18 16:48 | disposition home or self-care (01) | DRG 392 ==
LOC: ED 12:21 → 3A 09-16 05:07
PROVIDERS: ADMIT Hospitalist; ATTEND Student in an Organized Health Care Education/Training Program
PROC: 0DB48ZX Excision of Esophagogastric Junction, Via Natural or Artificial Opening Endoscopic, Diagnostic (ICD-10-PCS; principal; 2021-09-18)
PROC: 0D758ZZ Dilation of Esophagus, Via Natural or Artificial Opening Endoscopic (ICD-10-PCS; 2021-09-18)
DX: R13.10 Dysphagia, unspecified (principal); D69.6 Thrombocytopenia, unspecified; K44.9 Diaphragmatic hernia without obstruction or gangrene; K29.70 Gastritis, unspecified, without bleeding
CPT/HCPCS: 36415; 74176; 80048; 80053; 82962; 83690; 85025; 88305; 88312; 94640; G0378; J3490; J7070; J0171; J1644; J1650; J2405; J2704; J7030